=== PATIENT | female | born 1965 | race Caucasian/White ===

== ENCOUNTER 2020-06-30 17:03 | Emergency (ER) | payer MEDICAID ==
[~2020-06-30] VITALS: Ht 172.7 cm; Wt 113.4 kg
[2020-06-30 17:03] VITALS: BP 146/81
[2020-06-30] MEDS ORDERED: HYDROcodone/APAP 5/325 MG 1 TAB TAB PO ONE (17:25)
[2020-06-30] MEDS ORDERED: KETOROLAC 30 MG/ML VIAL IM ONE (19:15)
[2020-07-01 09:22] VITALS: BP 129/71
== END 2020-07-01 11:20 ==
LOC: MED 17:03
DX: S70.02XA Contusion of left hip, initial encounter (principal); S70.01XA Contusion of right hip, initial encounter; G40.909 Epilepsy, unspecified, not intractable, without status epilepticus; G89.29 Other chronic pain; M54.9 Dorsalgia, unspecified; Z88.2 Allergy status to sulfonamides; Z88.8 Allergy status to other drugs, medicaments and biological substances; W06.XXXA Fall from bed, initial encounter; Y93.89 Activity, other specified; Y92.89 Other specified places as the place of occurrence of the external cause; Y99.8 Other external cause status
CPT/HCPCS: 72100; 73521; 96372; 99284; J1885